=== PATIENT | female | born 1985 | race African-American/Black ===

== ENCOUNTER → 2016-10-13 | Emergency (ER) | payer MEDICAID ==
[~2016-10-13] MED LIST: ESCI20TA PO; METR500T10 PO; PREN1CAP20; ZANTTAB PO; ZOFR4TAB PO
--- NOTE | 2016-10-13 13:06 | PD ---
HPI Chief Complaint Pelvic pain, bloody discharge Date Seen: Oct 13, 2016 Time Seen: 13:06 Travel History International Travel<30 Days: No Contact w/Intl Traveler<30Days: No Known Affected Area: No History of Present Illness HPI Patient is a 31-year-old at 36 and 0/7 weeks, EDC 11/10/16, who presents to the OB ED due to persistent pelvic pain, lower abdominal cramping, 2 days. Her symptoms are worse when she is up and walking around at work and for prolonged period of time. Her pain has been significant over the last 2 days and she decided to come in this morning after having pink-tinged fluid on her tissue at 11 AM. Since then she has gone to the restroom without having subsequent pink tinged or bloody fluid on tissue. She denies overt vaginal bleeding, tractions, gush of fluid. She is feeling baby move regularly. No obvious loss of mucous plug. Last sexual activity was 2 weeks ago. history: [facility]. He has had significant migraines this , with MRI head performed and unremarkable. They are well controlled at this time, requiring only PRN Tylenol. She is currently not having any headaches. She also denies N/V/D/fever/sick contacts/SOB/calf pain/ dizziness/seeing spots. She is not had any episodes of vaginal bleeding this . She denies any traumas or falls. No history of clotting disorders or coagulopathies. Para: 1 : 2 History Past Medical History Narrative Medical Migraine Nausea Round ligament pain Medical History: Denies Significant Hx Obstetric History Obstetric History G1: Male, 39 weeks gestation, induced per patient preference, without complications, 7 lbs. 6 oz. "Barely passed" 1 hr GTT Past Surgical History Surgical History: No Previous Surgery Family History Family History: Negative Social History Alcohol Use: No Tobacco Use: No Substance Abuse: No Allergies-Medications (Allergen,Severity, Reaction): Coded Allergies: Penicillin (Verified Allergy, Severe, EDEMA, HIVES, 09/29/16) Home Meds Active Scripts Metronidazole 500 Mg [id number] Mg PO BID #14 TAB Ref 0 Take one tab by mouth twice per day until gone. Prov:Lizzy Parks MD R1 10/13/16 Reported Medications Ondansetron (Zofran)4 Mg Tab4 Mg PO Q6HR PRN (NAUSEA OR VOMITING) Ref 0 06/25/16 Ranitidine (Zantac 150 Maximum Strength)150 Mg [id number] Mg PO BID 06/25/16 W/O Vit A W/ Fe Carbo (Prenate Mini 18-0.6-0.4-350 mg)1 Cap Cap 06/25/16 Review of Systems Except as stated in HPI: all other systems reviewed are Neg Physical Exam Narrative GENERAL: Well-nourished, well-developed female in no acute distress. SKIN: Warm and dry. No rashes. HEAD: Normocephalic and atraumatic. EYES: No scleral icterus. No injection or drainage. ENT: No nasal drainage noted. Mucous membranes pink. Airway patent. NECK: Supple, trachea midline. No JVD. CARDIOVASCULAR: Regular rate and rhythm without murmurs, gallops, or rubs. RESPIRATORY: Breath sounds equal bilaterally. No accessory muscle use. ABDOMEN/GI: Abdomen soft, non-tender, bowel sounds present, no rebound, no guarding. Gravid GENITOURINARY: External Genitalia: intact and normal in appearance Cervix: Some erythema and on cervix. White discharge in the chunky, noted at cervical os. No bleeding from the cervix. No pooling in vaginal vault. No cervical motion tenderness. Dilatation: 0 Effacement: 50 Station: -3 Presentation: Unknown Membranes: Intact Uterine Contractions: None FHT's: Category: 1 Baseline: 135 Reactive: Yes Variability: Moderate Decels: none EXTREMITIES: No cyanosis or edema. BACK: Nontender without obvious deformity. No CVA tenderness. NEUROLOGICAL: Awake and alert. Motor and sensory grossly within normal limits. Five out of 5 muscle strength in all muscle groups. Normal speech. Data Data Vital Signs Reviewed: Yes (98.0F, RR 18, BP 121/79, P 98) MDM Medical Record Reviewed: Yes Narrative Course / MDM 31-year-old at 36 and 0/7 weeks, EDC 11/10/16, who presents to the OB ED with pelvic pain and vaginal discharge. Intrauterine : Not in labor Category 1 tracing Cervical exam: 0/50%/-3 U/A unremarkable Patient to be discharged, continue [facility] care with [facility] Treatment round ligament pain with Tylenol PRN GC/Chlamydia negative: Patient was called back with results, Cell number is [phone].. She will follow up with [facility] on Wednesday, appointment artery scheduled. Wet prep profile positive for clue cells: Patient with clue cells on microscopic examination. In addition to cervical discharge, suggestive of BV. We'll treat with metronidazole 500 mg by mouth 7 days, transmitted to pharmacy. Migraines: Well-managed at this time, continue pain management as needed Discussed with Dr. Bustamante, seen and discussed with Dr. Jefferson Diagnosis Diagnosis: Primary Impression: 36 weeks gestation of Additional Impressions: Round ligament pain Not in labor Disposition: 01 DISCHARGE HOME Condition: Stable Scripts Metronidazole 500 Mg [id number] Mg PO BID #14 TAB Ref 0 Take one tab by mouth twice per day until gone. Prov:Lizzy Parks MD R1 10/13/16 Patient Instructions: Abdominal Pain in (ED), General Instructions, Early Labor Signs (ED) Lizzy Parks MD R1 Oct 13, 2016 13:06
[2016-10-13 13:38] LABS: BACTERIA, URINE RARE /hpf; BLOOD, URINE NEG (NEG); COMMENT (UR) CULT NOT INDICATED; CULTURE IF INDICATED CULT NOT INDICATED; GLUCOSE,URINE NEG (NEG); KETONE, URINE NEG (NEG); MUCUS URINE FEW /lpf (OCC); NITRITE,URINE NEG (NEG); PH, URINE 7.5 (5.0-8.5); SQUAMOUS EPITHELIAL CELL URINE 10 /hpf (0-5); URINE COLOR YELLOW (YELLW/STRAW)
--- NOTE | 2016-10-13 13:43 | PD ---
History of Present Illness Date Seen: Oct 13, 2016 Time Seen: 13:15 History of Present Illness Patient is 31-year-old black female at 36 weeks presents complaining of some crampy pain and spotting this morning. She denies rupture of membranes. Heart rate tracing is reactive and no contractions [facility]. On exam patient's fingertip dilated thick and high there is no blood in the vagina, urinalysis negative she was monitored for an hour and had no bleeding, she was offered a pain shot for her discomfort but she refused it and will take Tylenol at home using heating pad at home bedrest at home given a work note for today Salas Bustamante II, MD Oct 13, 2016 13:42
[2016-10-13 15:45] LABS: CHLAMYDIA PCR NOT DETECTED (NOT DETECT); NEISSERIA PCR NOT DETECTED (NOT DETECT)
== END | disposition home or self-care (01) ==
LOC: HOBED 12:16
DX: O26.893 Other specified pregnancy related conditions, third trimester (principal); R10.2 Pelvic and perineal pain; R10.9 Unspecified abdominal pain; Z3A.36 36 weeks gestation of pregnancy
CPT/HCPCS: 59025; 81001; 87210; 87491; 87591

== ENCOUNTER 2016-10-22 09:18 | Emergency (ER) | payer MEDICAID ==
[~2016-10-22 09:18] MED LIST changes: -ESCI20TA PO
--- NOTE | 2016-10-22 09:33 | PD ---
HPI Chief Complaint Contractions Date Seen: Oct 22, 2016 Time Seen: 09:30 Travel History International Travel<30 Days: No Contact w/Intl Traveler<30Days: No History of Present Illness HPI 31 year old at 38 weeks gestation presents with pain and pressure in her pelvic region. She was checked in the office today and was 4 cm dilated by report. The pain occurs about every 30 mins to an hour, but is unpredictable. She states the pain is severe when it occurs. She has no leakage of fluid, no vaginal bleeding. She has good movements. No headache, blurry vision, chest pain, shortness of breath, or calf tenderness. She reports an uncomplicated course of . She is GBS positive, otherwise labs unremarkable. History Past Medical History Narrative Medical None Obstetric History Obstetric History JUANY 11/05/16 - by 2nd Trimester Ultrasound on 05/07/16 Indicators 2 Blood Type: Group B Strep: Problems/Plan N&V, HANSEN's- severe migraines unresponsive to meds 04/30-+BV/YEAST ON PAP-rx to pharm-pt awarE GBS POS Expected Delivery Route/Plan vaginal Visit Flowsheet Prepregnancy Weight: 230 #: 3 Date EGA BP Wt Alb Glu FuHt Pres FHR F/m CTX Edema Dil Eff Sta Prov 04/30/16 13w0d 140/79 223 n n 12 150 Absent Absent Absent 0 0 sc 05/28/16 17w0d 112/65 221 N N 17 140 Normal Absent Absent sc 06/25/16 21w0d 110/80 225 n n 20 154 Active Absent Absent sc 07/23/16 25w0d 108/66 228 N N 27 156 Active Absent Absent lb 08/24/16 29w4d 102/63 226 N N 30 Ceph 132 Active Absent Absent sc 09/14/16 32w4d 118/64 229 tr n 32 130 Active Absent Absent sc 09/29/16 34w5d 100/66 231 N N 35 Ceph 130 Active BH Absent sc 10/15/16 37w0d 120/68 231 N N 10/15/16 37w0d 120/68 231 N N 36 Ceph 132 Active BH Absent 3 50 0 lb Cumulative Gain: 1 2 Date EGA Comment 10/15/16 37w0d IN [facility] Wednesday for labor check, cervix was "FT" per resident exam. Cervix still posterior, cultures repeated today. Reviewed sx of active labor. 10/15/16 37w0d SONO. Good growth, EFW 7 lb 0 oz, 74 %tile Alyssa wnl 16 cm. Anatomy appears wnl although some views limited due to late GA, lie and MBH. 09/29/16 34w5d baby active, reports pelvic pain camelia vaginal pressure. Enc belly band and epsom salt. labor discussed 09/14/16 32w4d baby active, has some congestion, taking OTC meds. labor discussed 08/24/16 29w4d SONO. JUANY adjusted to first trimester dating by CRL. JUANY 2016. EFW 3 lb 9 oz, 67 %tile. ALYSSA wnl 13 cm. Anatomy appears wnl although some views limited due to late GA, lie and MBH. 08/24/16 29w4d baby active, no c/o. Us today confirms orrig JUANY 11/05. labor discussed, labs reviewed 07/23/16 25w0d measuring large, check sono next visit, given labslip for 28 week labs, had to do 3 hr GTT last , h/a's same still using Zofran 06/25/16 21w0d SONO. Good growth, EFW 1 lb 1 oz, Anatomy appears wnl. 06/25/16 21w0d Pt sts she is having severe HANSEN's daily, unresponsive to any Tylenol or rest and dark rooms. Baby active, strong FHT's. Will order MRI of brain. 05/28/16 17w0d Pt reports continued N&V and HANSEN's. Discuss comfort measures. Labs reviewed 05/07/16 14w0d SONO. CRL consistent with LMP, FHT and NB visualized. early anatomy appears wnl although limited by early GA and lie. FU 7 wk for anatomy scan. 04/30/16 13w0d New OB, Reports N&V, Rx to pharm. discuss comfort measures for HANSEN's. Pap and cx obtained, labs ordered. Standard Items 3 Result Result Date Next Due Freq/Seq Obstetric Labs Initial Hematocrit Ordered Ordered Ordered 6w0d 28.8 L 08/11/16 (27w5d) 26w0d Hemoglobin Ordered Ordered Ordered 6w0d 9.6 L 08/11/16 (27w5d) 26w0d Obstetric Labs 24-28 WKS Hematocrit Ordered Ordered Ordered 6w0d 28.8 L 08/11/16 (27w5d) 26w0d Hemoglobin Ordered Ordered Ordered 6w0d 9.6 L 08/11/16 (27w5d) 26w0d History 2 : 3 AB Spontaneous: 0 Term: 1 Mult Births: 0 : 0 Ectopic: 0 AB Induced: 1 Living Children: 1 Past Pregnancies 3 Delivery Gest. Outcome Route Length of Anesthesia Delivery Date Age/Wks # Weight/Sex Labor Location Labor 03/25/10 39 1 Live Vaginal 7 lbs 6 oz - M 27 Hrs Epidural [place] No OTHER- [facility] Initial lab date: Apr 30, 2016 Blood type: B D (Rh) Type: Positive Antibody screen: negative Hematocrit (%): 33.4 Hemoglobin (dL): 11.0 Pap test: normal Rubella: Immune VDRL: negative Urine screen: Normal Urine culture: Neg HBsAg: negative HIV: negative Chlamydia: negative Gonorrhea: negative Cystic fibrosis: negative (NEG FOR CF/FRAGILE X/SMA) TSH: 0.70 Varicella: Negative (Non Immune) Visit date: Jul 20, 2016 Diabetes screen - 1-hr GGT: 129 Visit date: Oct 15, 2016 Chlamydia (32 - 36 week labs): negative Gonorrhea (32 - 36 week labs): negative Beta strep culture: positive Past Surgical History Narrative Surgical None Family History Narrative Family History None significant Social History Alcohol Use: No Tobacco Use: No Substance Abuse: No Allergies-Medications (Allergen,Severity, Reaction): Coded Allergies: Penicillin (Verified Allergy, Severe, EDEMA, HIVES, 10/22/16) Comments Hives, uncertain about angioedema, respiratory distress, or throat swelling Home Meds Reported Medications Ondansetron (Zofran)4 Mg Tab4 Mg PO Q6HR PRN (NAUSEA OR VOMITING) Ref 0 06/25/16 Ranitidine (Zantac 150 Maximum Strength)150 Mg [id number] Mg PO BID 06/25/16 W/O Vit A W/ Fe Carbo (Prenate Mini 18-0.6-0.4-350 mg)1 Cap Cap 06/25/16 Discontinued Scripts Metronidazole 500 Mg [id number] Mg PO BID #14 TAB Ref 0 Take one tab by mouth twice per day until gone. Prov:Lizzy Parks MD R1 10/13/16 Review of Systems Except as stated in HPI: all other systems reviewed are Neg Physical Exam Narrative GENERAL: Well-nourished, well-developed patient. SKIN: Warm and dry. HEAD: Normocephalic and atraumatic. EYES: No scleral icterus. No injection or drainage. ENT: No nasal drainage noted. Mucous membranes pink. Airway patent. NECK: Supple, trachea midline. No JVD. CARDIOVASCULAR: Regular rate and rhythm without murmurs, gallops, or rubs. RESPIRATORY: Breath sounds equal bilaterally. No accessory muscle use. ABDOMEN/GI: Abdomen soft, non-tender, bowel sounds present, no rebound, no guarding Gravid to 38 weeks size GENITOURINARY: External Genitalia: intact and normal in appearance Dilatation: 3 Effacement: 50 Station: -3 Presentation: vertex Membranes: intact Uterine Contractions: none FHT's: Category: 1 Baseline: 140 Reactive: yes Variability: moderate Decels: none EXTREMITIES: No cyanosis or edema. BACK: Nontender without obvious deformity. No CVA tenderness. NEUROLOGICAL: Awake and alert. Data Data Vital Signs Reviewed: Yes MDM Medical Record Reviewed: Yes Interpretation(s) 31 year old at 38 weeks gestation here with lower pelvic pressure and cervical dilation in office - Labor check - Hydration - External monitoring - Observe for an hour Discussed with Dr. Skinner Narrative Course / MDM - No contractions during observation - strip category 1 - Reviewed labor precautions - Reviewed when to return to OB ED - Follow closely with OB provider Discussed with Dr. Bustamante Diagnosis Diagnosis: Primary Impression: Pelvic pain Disposition: 01 DISCHARGE HOME Condition: Good Aidan Jefferson MD R2 Oct 22, 2016 09:33
[2016-10-29] MEDS ORDERED: ESCI20TA PO (13:48)
== END 2016-10-22 11:45 | disposition home or self-care (01) ==
LOC: HOBED 09:18
DX: R10.2 Pelvic and perineal pain (principal); O26.93 Pregnancy related conditions, unspecified, third trimester; Z3A.38 38 weeks gestation of pregnancy
CPT/HCPCS: 59025

== ENCOUNTER 2016-10-26 00:57 | Inpatient (IN) | payer MEDICAID ==
[2016-10-26] VITALS (12 sets, daily range): BP systolic 98–139; BP diastolic 68–83; PULSE 84–104; RESP 18–22; TEMP 99.4
[~2016-10-26] VITALS: Ht 165.1 cm; Wt 104.8 kg
[~2016-10-26 00:57] MED LIST changes: -METR500T10 PO
[2016-10-26] MEDS ORDERED: LACTATED RINGER'S 1000 ML INJ 1,000 ML IV PRN (01:47)
--- NOTE | 2016-10-26 01:47 | PD ---
HPI Chief Complaint Decreased FM. Travel History International Travel<30 Days: No Contact w/Intl Traveler<30Days: No Known Affected Area: No History of Present Illness HPI at 38w 4d, JUANY 11-05-16, presents with c/o decreased FM today. Reports last movement felt last night. Denies abd/pelvic pain. Denies contractions/VB/LOF. Denies problems this . Para: 1 : 3 Last Menstrual Period: Oct 26, 2016 History Past Medical History Medical History: Denies Significant Hx Past Surgical History Surgical History: No Previous Surgery Family History Family History: Negative Social History Alcohol Use: No Tobacco Use: No Substance Abuse: No Allergies-Medications (Allergen,Severity, Reaction): Coded Allergies: Penicillin (Verified Allergy, Severe, EDEMA, HIVES, 10/22/16) Home Meds Reported Medications Ondansetron (Zofran)4 Mg Tab4 Mg PO Q6HR PRN (NAUSEA OR VOMITING) Ref 0 06/25/16 Ranitidine (Zantac 150 Maximum Strength)150 Mg [id number] Mg PO BID 06/25/16 W/O Vit A W/ Fe Carbo (Prenate Mini 18-0.6-0.4-350 mg)1 Cap Cap 06/25/16 Discontinued Scripts Metronidazole 500 Mg [id number] Mg PO BID #14 TAB Ref 0 Take one tab by mouth twice per day until gone. Prov:Lizzy Parks MD R1 10/13/16 Physical Exam AFVSS BP 116/67 Narrative GENERAL: Well-nourished, well-developed patient. SKIN: Warm and dry. HEAD: Normocephalic and atraumatic. EYES: No scleral icterus. No injection or drainage. ENT: No nasal drainage noted. Mucous membranes pink. Airway patent. NECK: Supple, trachea midline. No JVD. CARDIOVASCULAR: Regular rate and rhythm without murmurs, gallops, or rubs. RESPIRATORY: Breath sounds equal bilaterally. No accessory muscle use. BREASTS: Bilateral exam showed no masses , no retractions, no nipple discharge. ABDOMEN/GI: Abdomen soft, non-tender, bowel sounds present, no rebound, no guarding Gravid to [-] weeks size Fundal Height: [-] GENITOURINARY: External Genitalia: intact and normal in appearance BUS glands: [-] Cervix: [-] Dilatation: [2-3] Effacement: [50] Station: [3] Presentation: [-] Membranes: [intact or ruptured] Uterine Contractions: [irritibility] FHT's: Category: [-] Baseline: [-] Reactive: [-] Variability: [-] Decels: [-] EXTREMITIES: No cyanosis or edema. BACK: Nontender without obvious deformity. No CVA tenderness. NEUROLOGICAL: Awake and alert. Motor and sensory grossly within normal limits. Five out of 5 muscle strength in all muscle groups. Normal speech. US performed at bedside- no cardiac activity noted- M mode also used. Images shown to patient and support person. Data Data Vital Signs Reviewed: Yes Labs PNL: B positive/antibody negative Rubella- Immune RPR- negative Hep B- negative HIV- negative GC/Chl- negative GBS-positive MDM Interpretation(s) at 38w 4d, with intrauterine demise. Plan D/w patient current status. US ordered. D/w patient R/B/A of admission now and delivery. Patient desires admission. Will admit and observe for now, as patient is very emotional. Will monitor closely. Diagnosis Diagnosis: Primary Impression: 38 weeks gestation of Additional Impression: Intrauterine in Camille Ascencio MD Oct 26, 2016 01:47
--- NOTE | 2016-10-26 01:57 | HHI.HP ---
HPI Travel History International Travel<30 Days: No Contact w/Intl Traveler<30Days: No Known Affected Area: No History of Present Illness HPI at 38w 4d, JUANY 11-05-16, presents with c/o decreased FM today. Reports last movement felt last night. Denies abd/pelvic pain. Denies contractions/VB/LOF. Denies problems this . Para: 1 : 3 History Past Medical History Medical History: Denies Significant Hx Past Surgical History Surgical History: No Previous Surgery Family History Family History: Negative Social History Alcohol Use: No Tobacco Use: No Substance Abuse: No Allergies-Medications (Allergen,Severity, Reaction): Coded Allergies: Penicillin (Verified Allergy, Severe, EDEMA, HIVES, 10/22/16) Home Meds Reported Medications Ondansetron (Zofran)4 Mg Tab4 Mg PO Q6HR PRN (NAUSEA OR VOMITING) Ref 0 06/25/16 Ranitidine (Zantac 150 Maximum Strength)150 Mg [id number] Mg PO BID 06/25/16 W/O Vit A W/ Fe Carbo (Prenate Mini 18-0.6-0.4-350 mg)1 Cap Cap 06/25/16 Discontinued Scripts Metronidazole 500 Mg Jez405 Mg PO BID #14 TAB Ref 0 Take one tab by mouth twice per day until gone. Prov:Lizzy Parks MD R1 10/13/16 Physical Exam AFVSS BP 116/67 Narrative GENERAL: Well-nourished, well-developed patient. SKIN: Warm and dry. HEAD: Normocephalic and atraumatic. EYES: No scleral icterus. No injection or drainage. ENT: No nasal drainage noted. Mucous membranes pink. Airway patent. NECK: Supple, trachea midline. No JVD. CARDIOVASCULAR: Regular rate and rhythm without murmurs, gallops, or rubs. RESPIRATORY: Breath sounds equal bilaterally. No accessory muscle use. BREASTS: Bilateral exam showed no masses , no retractions, no nipple discharge. ABDOMEN/GI: Abdomen soft, non-tender, bowel sounds present, no rebound, no guarding Gravid to [-] weeks size Fundal Height: [-] GENITOURINARY: External Genitalia: intact and normal in appearance BUS glands: [-] Cervix: [-] Dilatation: [2-3] Effacement: [50] Station: [3] Presentation: [vertex] Membranes: [intact or ruptured] Uterine Contractions: [irritibility] FHT's: Category: [-] Baseline: [-] Reactive: [-] Variability: [-] Decels: [-] EXTREMITIES: No cyanosis or edema. BACK: Nontender without obvious deformity. No CVA tenderness. NEUROLOGICAL: Awake and alert. Motor and sensory grossly within normal limits. Five out of 5 muscle strength in all muscle groups. Normal speech. US performed at bedside- no cardiac activity noted, M mode used. Findings shown to patient and support person present at bedside. Data Data Vital Signs Reviewed: Yes Labs PNL: B positive/antibody negative Rubella- Immune RPR- negative Hep B- negative HIV- negative GC/Chl- negative GBS-positive Assessment/Plan Assessment and Plan at 38w 4d, with intrauterine demise. Plan D/w patient current status. US ordered. D/w patient R/B/A of admission now and delivery. Patient desires admission. Will admit and observe for now, as patient is very emotional. Will monitor closely. Will readdress plan for delivery after patient has d/w family. Diagnosis Diagnosis: Primary Impression: 38 weeks gestation of Additional Impression: Intrauterine in Camille Ascencio MD Oct 26, 2016 01:57
[2016-10-26] MEDS ORDERED: LIDOCAINE HCL 1% 50 ML VIAL INFIL PRN (02:00)
[2016-10-26] MEDS ORDERED: CITRIC ACID-SODIUM CITRATE LIQ 30 ML UDC PO SCH (02:00)
[2016-10-26] MEDS ORDERED: MINERAL OIL 10 ML VIAL TOPICAL PRN (02:00)
[2016-10-26] MEDS ORDERED: SODIUM CHLORID 0.9% 500 ML INJ 500 ML IV PRN (02:00)
[2016-10-26] MEDS ORDERED: OXYTOCIN 30 UNITS-500ML PREMIX 500 ML IV ONE (02:00)
[2016-10-26] MEDS ORDERED: LIDOCAINE HCL 1% 50 ML VIAL I-DERMAL PRN (02:00)
[2016-10-26 02:06] LABS: AUTOMATED NEUTROPHIL # 7.1 TH/MM3 (1.8-7.7); BASOPHIL # 0.1 TH/MM3 (0-0.2); BASOPHIL % 0.5 % (0.0-2.0); EOSINOPHIL # 0.1 TH/MM3 (0-0.4); EOSINOPHIL % 0.8 % (0.0-4.0); HEMATOCRIT 25.2 % (35.0-46.0); HEMO FLAGS AUTO DIFF; LYMPH % 23.8 % (9.0-44.0); LYMPHOCYTE # 2.5 TH/MM3 (1.0-4.8); MEAN CORPUSCULAR HEMOGLOBIN 24.6 PG (27.0-34.0); MEAN CORPUSCULAR HGB CONC 33.2 % (32.0-36.0); MONO % 7.2 % (0.0-8.0); NEUT % 67.7 % (16.0-70.0); PLATELET COUNT 358 TH/MM3 (150-450); RED BLOOD COUNT 3.41 MIL/MM3 (4.00-5.30); RED CELL DISTRIBUTION WIDTH 15.7 % (11.6-17.2); WHITE BLOOD COUNT 10.4 TH/MM3 (4.0-11.0)
[2016-10-26] MEDS ORDERED: SODIUM CHLOR 0.9% 1000 ML INJ 1,000 ML IV PRN (02:07)
[2016-10-26 02:15] LABS: AMPHETAMINE, URINE NEG (NEG); BARBITURATES, URINE NEG (NEG); COCAINE, URINE NEG (NEG)
[2016-10-26] MEDS ORDERED: LORazepam 2 MG/ML VIAL IV PUSH ONE (02:15)
[2016-10-26] MEDS: LACTATED RINGER'S 1000 ML INJ 1,000 ML IV SCH ×2 (02:19→16:33)
[2016-10-26 02:20] LABS: BLOOD, URINE NEG (NEG); COMMENT (UR) CULTURE INDICATED; CULTURE IF INDICATED CULTURE INDICATED; GLUCOSE,URINE NEG (NEG); KETONE, URINE NEG (NEG); MUCUS URINE FEW /lpf (OCC); NITRITE,URINE NEG (NEG); SQUAMOUS EPITHELIAL CELL URINE 4 /hpf (0-5); URINE COLOR YELLOW (YELLW/STRAW)
[2016-10-26 02:56] LABS: SCAN/DIFF AUTO DIFF CONFIRMED
[2016-10-26 02:57] LABS: OVALOCYTES 1+ (NORMAL)
[2016-10-26 02:58] LABS: PLATELET ESTIMATE SMEAR NORMAL (NORMAL); PLATELET MORPHOLOGY NORMAL (NORMAL)
[2016-10-26] MEDS ORDERED: ACETAMINOPHEN 325 MG TAB PO PRN ×2 (08:15→19:00)
--- NOTE | 2016-10-26 08:36 | PD.LABORPN ---
Subjective Subjective Resting comfortably in bed. Patient is without complaints. Denies any vaginal bleeding or discharge. Denies abdominal pain, fevers, chills, chest pain, shortness of breath. (Ziyad Reza MD R1) Objective Vital Signs Vital Signs Date Time Temp Pulse Resp B/P Pulse Ox O2 Delivery O2 Flow Rate FiO2 10/26/16 02:31 104 22 10/26/16 02:31 139/75 Objective GENERAL: Well-nourished, well-developed patient. SKIN: Warm and dry. HEAD: Normocephalic and atraumatic. EYES: No scleral icterus. No injection or drainage. ENT: No nasal drainage noted. Mucous membranes pink. Airway patent. NECK: Supple, trachea midline. No JVD. CARDIOVASCULAR: Regular rate and rhythm without murmurs, gallops, or rubs. RESPIRATORY: Breath sounds equal bilaterally. No accessory muscle use. ABDOMEN/GI: Abdomen soft, non-tender, bowel sounds present, no rebound, no guarding Gravid to 38 weeks size GENITOURINARY: from previous examination this AM External Genitalia: intact and normal in appearance Cervix: [-] Dilatation: [2-3] Effacement: [50] Station: [3] Presentation: [vertex] Membranes: [intact or ruptured] Uterine Contractions: [] FHT's: Category: [-] Baseline: [-] Reactive: [-] Variability: [-] Decels: [-] EXTREMITIES: No cyanosis or edema. BACK: Nontender without obvious deformity. NEUROLOGICAL: Awake and alert. Motor and sensory grossly within normal limits. Normal speech. (Ziyad Reza MD R1) Assessment/Plan Assessment and Plan 31 year old at 38 weeks 4 days gestation admitted with intrauterine demise. 1. IUFD - US performed at bedside showed no cardiac activity - Patient has been informed of r/b/a of admission and delivery and chooses to proceed with delivery - Denies vaginal bleeding or loss of fluid - Denies contractions, abdominal or pelvic pain - Continue expectant management, consider need for induction (Ziyad Reza MD R1) Assessment and Plan Patient seen and examined. Patient reports some rest after Ativan. D/w patient delivery options again. R/B/A reviewed. Patient in agreement with proceeding towards delivery. All questions answered. Will begin induction. (Camille Ascencio MD) Ziyad Reza MD R1 Oct 26, 2016 08:36 Camille Ascencio MD Oct 26, 2016 09:40
[2016-10-26] MEDS ORDERED: OXYTOCIN 30 UNITS-500ML PREMIX 500 ML IV SCH (11:00)
[2016-10-26] MEDS ORDERED: LORazepam 2 MG/ML VIAL IV PUSH PRN (11:00)
[2016-10-26 13:55] LABS: RAPID PLASMA REAGIN SCREEN NON-REACTIVE (NON-REACTVE)
[2016-10-26] MEDS ORDERED: MEASLES, MUMPS, RUBELLA VACCINE 0.5 ML VIAL SQ ONE (16:00)
[2016-10-26] MEDS ORDERED: SODIUM CHLORIDE 0.9% FLUSH 5 ML FLUSH IV PRN ×2 (16:00→19:00)
[2016-10-26] MEDS ORDERED: DIPHTH/TETANUS/ACEL PERTUSSIS (BOOSTER) 0.5 ML VIAL/PFS IM ONE (16:00)
--- NOTE | 2016-10-26 16:17 | PD.LABORPN ---
Subjective Subjective This patient is a 38 week intrauterine demise now undergoing labor induction for uterine evacuation. She is on Pitocin IV. 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 Patient at this time does not want an epidural but will take pain medication in the IV. I expect vaginal delivery soon Objective Vital Signs Vital Signs Date Time Temp Pulse Resp B/P Pulse Ox O2 Delivery O2 Flow Rate FiO2 10/26/16 12:30 97 113/69 Objective Pelvic Exam: Cervix: [4-5-] Dilatation: [-4-5] Effacement: [80-] Station: [-2] Presentation: [vtx-] Membranes: ruptured]AROM Assessment/Plan Assessment and Plan 38 week IUFD in mid induction process AROM just performed with cloudy fluid, IUPC placed, Pitocin running, Violet 4-5 cm 80% -2 cephalic presentation, expect vaginal delivery shortly Salas Bustamante II, MD Oct 26, 2016 16:17
[2016-10-26] MEDS ORDERED: HYDROmorphone HCL PCA 6 MG/30 ML IV ONE (17:29)
[2016-10-26] MEDS ORDERED: HYDROmorphone HCL PCA 6 MG/30 ML IV SCH (17:30)
[2016-10-26] MEDS ORDERED: NALOXONE HCL 0.4 MG/ML AMP IV PRN (17:30)
--- NOTE | 2016-10-26 18:57 | PD.OB.DELI ---
Delivery Date: Oct 26, 2016 Anesthesia: None Episiotomy: None Vaginal Delivery: Spontaneous Presentation: Occiput anterior Nuchal Cord: None Shoulder Dystocia: Suprapubic pressure given, Jami maneuver done : Male One Minute : 0 Five Minute : 0 Placenta: Spontaneous delivery, Intact, 3 vessel cord, Other (appearance of approximately 5cm hematoma in cord just proximal to placenta) Laceration: No lacerations Additional Information EBL 250cc IUFD Gayla Durham MD R2 Oct 26, 2016 18:57
[2016-10-26] MEDS ORDERED: ZOLPIDEM TARTRATE 5 MG TAB PO PRN (19:00)
[2016-10-26] MEDS ORDERED: ALUMINUM/MAGNESIUM/SIMETH 30 ML CUP PO PRN (19:00)
[2016-10-26] MEDS ORDERED: IBUPROFEN 600 MG TAB PO PRN (19:00)
[2016-10-26] MEDS ORDERED: oxyCODONE/ACETAMINOPHEN 5 MG/325 MG TAB PO PRN ×2 (19:00)
[2016-10-26] MEDS ORDERED: BENZOCAINE 20% TOPICAL SPRAY 60 ML CAN TOPICAL PRN (19:00)
[2016-10-26] MEDS ORDERED: WITCH HAZEL 50%/GLYCERIN 12.5% 40 PAD JAR TOPICAL PRN (19:00)
[2016-10-26] MEDS ORDERED: ONDANSETRON ODT 4 MG TAB PO PRN (19:00)
[2016-10-26] MEDS ORDERED: DOCUSATE SODIUM 50 MG/SENNA 8.6 MG TAB PO PRN (19:00)
[2016-10-26] MEDS ORDERED: SODIUM CHLORIDE 0.9% FLUSH 5 ML FLUSH IV SCH ×2 (21:00)
[2016-10-26] MEDS ORDERED: PCA - TOTAL MG DILAUDID DELIVERED PER SHIFT SCH (22:00)
[2016-10-29] MEDS ORDERED: ESCI20TA PO (13:48)
== END 2016-10-26 22:20 | disposition home or self-care (01) | DRG 775 ==
LOC: HOBED 00:57 → H2EA 01:41
PROVIDERS: ADMIT Obstetrics & Gynecology; ATTEND Obstetrics & Gynecology
PROC: 10E0XZZ Delivery of Products of Conception, External Approach (ICD-10-PCS; principal; 2016-10-26)
PROC: 10907ZC Drainage of Amniotic Fluid, Therapeutic from Products of Conception, Via Natural or Artificial Opening (ICD-10-PCS; 2016-10-26)
DX: O36.4XX0 Maternal care for intrauterine death, not applicable or unspecified (principal); O66.0 Obstructed labor due to shoulder dystocia; Z3A.38 38 weeks gestation of pregnancy; Z88.0 Allergy status to penicillin; Z37.1 Single stillbirth
CPT/HCPCS: 76815; 80307; 81001; 85025; 86592; 86850; 86900; 86901; 87086; 88307; J1170; J2060; J2590; J3010; J7120